=== PATIENT | male | born 1960 | race Caucasian/White ===

== ENCOUNTER 2017-06-20 06:50 | Day surgery (SDC) | payer BC, SELFPAY ==
[~2017-06-20] VITALS: Ht 175.3 cm; Wt 84.8 kg
[~2017-06-20 06:50] MED LIST: ALPR.25 PO; CIPR500 PO; ESCI20 PO; HYDR1TAB94 PO; IBUP800 PO; KETO10 PO; OXYACE5T PO; PROM25 PO; SENN187 PO; TAMS.4ER PO
== END 2017-06-20 22:43 | disposition home or self-care (01) ==
LOC: ORSCMMR 06:50
PROVIDERS: Surgery
PROC: 06BY4ZC Excision of Hemorrhoidal Plexus, Percutaneous Endoscopic Approach (ICD-10-PCS; principal; 2017-06-20 08:30)
PROC: 0DBP8ZX Excision of Rectum, Via Natural or Artificial Opening Endoscopic, Diagnostic (ICD-10-PCS; principal; 2017-06-20 08:30)
DX: K64.2 Third degree hemorrhoids (principal); K63.5 Polyp of colon; K57.30 Diverticulosis of large intestine without perforation or abscess without bleeding; I10 Essential (primary) hypertension; K62.5 Hemorrhage of anus and rectum; F17.210 Nicotine dependence, cigarettes, uncomplicated; F41.8 Other specified anxiety disorders; Z79.899 Other long term (current) drug therapy
CPT/HCPCS: 88304; 88305; J1100; J1885; J2250; J2405; J3010; J7120

== ENCOUNTER 2017-09-08 11:07 | Emergency (ER) | payer BC, SELFPAY ==
[~2017-09-08] VITALS: Ht 172.7 cm; Wt 84.4 kg
== END 2017-09-08 12:06 | disposition home or self-care (01) ==
LOC: ER 11:07
DX: S51.812A Laceration without foreign body of left forearm, initial encounter (principal); W26.0XXA Contact with knife, initial encounter; Z79.899 Other long term (current) drug therapy; F17.210 Nicotine dependence, cigarettes, uncomplicated; Z85.59 Personal history of malignant neoplasm of other urinary tract organ
CPT/HCPCS: 12002; 90471; 90714; 99283